=== PATIENT | female | born 1950 | race Caucasian/White ===

== ENCOUNTER 2019-07-25 10:18 | Outpatient (CLI) | payer MEDICARE ==
--- NOTE | 2019-07-26 08:25 | XRAY Report ---
Reason: PAIN SUB 2ND MT RT FOOT Procedure Date: 07/25/2019 Accession Number: [id number] / [id number] Procedure: XR - Foot 3 View RT CPT Code: Final Report FULL RESULT: EXAM: RIGHT FOOT RADIOGRAPHY EXAM DATE: 07/25/2019 10:37 AM. CLINICAL HISTORY: PAIN SUB 2ND MT RT FOOT. COMPARISON: None. TECHNIQUE: 3 views. FINDINGS: Bones: Normal. No fractures or bone lesions. Joints: Normal. No subluxations. Soft Tissues: Soft tissue swelling is at the right second MTP joint noted. No calcifications or matrix noted. IMPRESSION: 1. No fracture or malalignment. 2. Subtle soft tissue fullness on the plantar aspect of the right second MTP joint. No soft tissue matrix. Findings are nonspecific. MRI would be confirmatory. 3. If patient remains symptomatic, recommend follow up in 10-14 days. [facility]
== END 2019-07-25 10:19 | disposition home or self-care (01) ==
LOC: DI 10:18
PROVIDERS: ATTEND Podiatrist
DX: M79.671 Pain in right foot (principal)

== ENCOUNTER 2021-07-01 15:16 | Outpatient (CLI) | payer OTHER ==
--- NOTE | 2021-07-01 18:43 | Ultrasound Report ---
PROCEDURE: Duplex Ext Veins Right INDICATIONS: DVT RIGHT LEG TECHNIQUE: Real-time imaging, as well as color and pulse Doppler interrogation, were performed of the lower extr emity deep veins from the inguinal ligament to the popliteal fossa. COMPARISON: None. FINDINGS: The deep veins are normally compressible, and free of intraluminal thrombus. Color and pu lse Doppler demonstrate normal phasic intraluminal flow. There is normal augmentation response to di stal compression maneuver. 6.1 x 1.6 x 2.6 cm popliteal cyst. There is a 4.3 x 0.4 x 2.6 cm fluid collection along the lateral m argin of the knee joint. IMPRESSION: 1. No evidence of deep vein thrombosis involving the right lower extremity. 2. Large popliteal cyst. 3. Nonspecific soft tissue fluid collection adjacent to the lateral margin of the knee joint. Finding could represent hematoma or seroma, however infected fluid collection cannot be excluded by imaging alone. Recommend correlation with clinical and laboratory data. Reviewed by: Melody Callahan MD, PhD on 07/01/2021 5:41 PM [place] Approved by: Melody Callahan MD, PhD on 07/01/2021 5:41 PM [facility] Station ID: [id number]
== END 2021-07-01 15:17 | disposition home or self-care (01) ==
LOC: DI 15:16
PROVIDERS: ATTEND Nurse Practitioner Family
DX: I82.401 Acute embolism and thrombosis of unspecified deep veins of right lower extremity (principal); M71.21 Synovial cyst of popliteal space [Baker], right knee; R93.6 Abnormal findings on diagnostic imaging of limbs; R93.89 Abnormal findings on diagnostic imaging of other specified body structures